=== PATIENT | male | born 1945 | race Caucasian/White ===

== ENCOUNTER 2024-10-31 10:54 | Outpatient (CLI) | payer MEDICARE, OTHER | END 2024-10-31 23:59 | disposition home or self-care (01) | LOC: RAD 10:54 | PROVIDERS: ATTEND Podiatrist Foot & Ankle Surgery | DX: S90.851A Superficial foreign body, right foot, initial encounter (principal); M13.871 Other specified arthritis, right ankle and foot; M25.871 Other specified joint disorders, right ankle and foot; M79.671 Pain in right foot; X58.XXXA Exposure to other specified factors, initial encounter; Y93.89 Activity, other specified; Y92.89 Other specified places as the place of occurrence of the external cause; Y99.8 Other external cause status | CPT/HCPCS: 73700 ==

== ENCOUNTER 2025-02-08 05:20 | Day surgery (SDC) | payer MEDICARE, OTHER ==
[2025-02-01 10:43] LABS: BILIRUBIN,URINE NEGATIVE (Neg); CLARITY,URINE CLEAR (Clear); GLUCOSE, URINE >=1000 mg/dl (Neg); KETONES,URINE TRACE mg/dl (Neg); LEUKOCYTE ESTERASE ,URINE NEGATIVE (Neg); NITRITES, URINE NEGATIVE (Neg); OCCULT BLOOD,URINE NEGATIVE (Neg); PH,URINE 5.5 (4.8-8.0); PROTEIN,URINE NEGATIVE (Neg); UROBILINOGEN,URINE 0.2 E.U/dL (0.2-1.0)
[2025-02-01 10:44] LABS: BASOPHILS # (AUTO) 0.1 X10'3 (0-0.2); BASOPHILS % (AUTO) 1.1 % (0-1); EOSINOPHILS # (AUTO) 0.2 X10'3 (0-0.9); EOSINOPHILS % (AUTO) 2.1 % (0-6); LYMPHOCYTES # (AUTO) 1.5 X10'3 (1.1-4.8); LYMPHOCYTES % (AUTO) 14.4 % (21-51); MEAN CORPUSCULAR HEMOGLOBIN 31.6 PG (27.0-31.0); MEAN CORPUSCULAR HGB CONC 33.6 g/dL (33.0-36.5); MEAN CORPUSCULAR VOLUME 94.1 FL (78-98); MEAN PLATELET VOLUME 8.3 FL (7.4-10.4); MONOCYTES # (AUTO) 0.4 X10'3 (0-0.9); NEUTROPHILS # (AUTO) 8.1 X10'3 (1.8-7.7); NEUTROPHILS % (AUTO) 78.4 % (42-75); PRE OP HEMATOCRIT 45.2 % (42.0-52.0); PRE OP HEMOGLOBIN 15.2 g/dL (14.0-17.9); PRE OP PLATELET COUNT 211 X10'3 (140-440); PRE OP WHITE BLOOD COUNT 10.3 10'3 (4.8-10.8); RED CELL DISTRIBUTION WIDTH 25.1 % (11.5-14.5)
[2025-02-01 10:47] LABS: COLOR,URINE DARK YELLOW (Yellow); UA COLLECTION TYPE NON-SPECIFIED
[2025-02-01 10:50] LABS: WBC,URINE 0-4 /HPF (0-4)
[2025-02-01 10:51] LABS: BACTERIA,URINE NONE SEEN /HPF (Neg); MUCUS STRANDS FEW /LPF (Neg); RBC,URINE 0-2 /HPF (0-2); SQUAMOUS EPITHELIAL CELL,UR FEW /LPF (FEW)
[2025-02-01 11:00] LABS: ANISOCYTOSIS 3+; PLATELET ESTIMATE NORMAL
[2025-02-01 11:09] LABS: ALBUMIN 3.8 G/DL (3.4-5.0); ALBUMIN/GLOBULIN RATIO 1.3 (1.1-1.5); ALKALINE PHOSPHATASE 59 IU/L (46-116); BLOOD UREA NITROGEN 26 MG/DL (7-18); BUN/CREATININE RATIO 29.9 (10.0-20.0); CALCIUM 8.6 MG/DL (8.5-10.1); CHLORIDE 106 MMOL/L (99-107); CREATININE 0.87 MG/DL (0.60-1.10); PRE OP ALT 20 U/L (30-65); PRE OP ANION GAP 8 (8-16); PRE OP AST 16 U/L (10-37); PRE OP BILIRUB, TOTAL 1.5 MG/DL (0.0-1.0); PRE OP GLUCOSE 168 MG/DL (70-104); PRE OP POTASSIUM 4.4 MMOL/L (3.4-5.1); PRE OP SODIUM 139 MMOL/L (135-145); TOTAL CARBON DIOXIDE 25.5 MMOL/L (24-32); TOTAL PROTEIN 6.8 G/DL (6.4-8.2); eGFR 84 ML/MIN
[~2025-02-08] VITALS: Ht 193 cm; Wt 101.6 kg
[~2025-02-08 05:20] MED LIST: CALCIUM; EMPA25TA PO; INSU100V41 SQ; MULTIVITAMIN; NIACIN; OMEG-166 PO; PRAV20TA4 PO; SEMA1PEN3 SUBCUT; VIT B12; VIT C; VIT D3; WARF-55 PO; ZINC; [UNRECOGNIZED DRUG - OTHER]
[2025-02-08] MEDS ORDERED: ceFAZolin 2gm in dextrose, iso 50 ML IV ONE (05:30)
[2025-02-08 05:40] VITALS: BP 139/81; PULSE 48; RESP 16; TEMP 96.6; O2SAT 98
[2025-02-08] MEDS: famotidine 20mg tablet PO ONE (06:36)
[2025-02-08] MEDS: ringers solution, lacted 1,000 ML IV SCH (06:38)
[2025-02-08] MEDS ORDERED: bacitracin 15gm ointment TP ONE (07:10)
[2025-02-08] MEDS ORDERED: BUPIVAcaine 2.5mg/ml inj 50ml vial (contains preservative) ONE (07:10)
[2025-02-08] MEDS ORDERED: midazolam 1 mg/ML 2ml injection ONE (07:17)
[2025-02-08] MEDS ORDERED: fentaNYL/PF 50MCG/1 ML 2ML syringe ONE (07:17)
[2025-02-08] MEDS ORDERED: propofol inj 20 ML IV ONE (07:18)
[2025-02-08] MEDS ORDERED: LIDOcaine 2% (20mg/ml) 5ml vial ONE (07:18)
[2025-02-08] MEDS ORDERED: sevoflurane 250ml liquid IH ONE (07:20)
[2025-02-08] MEDS ORDERED: dexamethasone sod phosphate 4mg/ml inj. ONE (07:35)
[2025-02-08] MEDS ORDERED: acetaminophen 1,000mg/100ml IV 100 ML IV ONE (08:13)
[2025-02-08] MEDS ORDERED: ondansetron/PF 4mg/2ml inj ONE (08:14)
[2025-02-08] MEDS ORDERED: proCHLORperazine 10 MG/2 ml inj IV PRN (08:15)
[2025-02-08] MEDS ORDERED: ringers solution, lacted 1,000 ML IV SCH (08:15)
[2025-02-08] MEDS ORDERED: labetalol 20mg/4ml (5mg/ml) syringe IV PRN (08:15)
[2025-02-08] MEDS ORDERED: meperidine/PF 25mg/ml syringe IV PRN ×3 (08:15)
[2025-02-08] MEDS ORDERED: morphine 4 MG/ML inj SYRINge IV PRN (08:15)
[2025-02-08] MEDS ORDERED: enalaprilat 1.25mg/ml 2ml vial IV PRN (08:15)
[2025-02-08] MEDS ORDERED: morphine 2 MG/ML inj. syringe IV PRN (08:15)
[2025-02-08] MEDS ORDERED: ondansetron/PF 4mg/2ml inj IV PRN (08:15)
[2025-02-08 08:26] VITALS: BP 115/69; PULSE 64; RESP 13; O2SAT 96
[2025-02-08 08:30] VITALS: BP 117/70; PULSE 72; RESP 14; O2SAT 96
[2025-02-08 08:40] VITALS: BP 116/64; PULSE 70; RESP 15; O2SAT 97
[2025-02-08 09:00] VITALS: BP 131/70; PULSE 71; RESP 13; O2SAT 94
[2025-02-08 09:10] VITALS: BP 141/78; PULSE 73; RESP 13; O2SAT 94
== END 2025-02-08 09:16 | disposition home or self-care (01) ==
LOC: PAS 05:20
PROVIDERS: ATTEND Podiatrist Foot & Ankle Surgery
DX: S90.851A Superficial foreign body, right foot, initial encounter (principal); E78.5 Hyperlipidemia, unspecified; W45.8XXA Other foreign body or object entering through skin, initial encounter; Y93.89 Activity, other specified; Y92.89 Other specified places as the place of occurrence of the external cause; Y99.8 Other external cause status; Z79.899 Other long term (current) drug therapy; Z98.890 Other specified postprocedural states
CPT/HCPCS: 28190; 36415; 73620; 80053; 81001; 82948; 85025; 93005; A4618; A6222; A6402; A6449; A7000; J0131; J0690; J1100; J2003; J2250; J2405; J2704; J3010; J3490; J7030; J7120; Z7506; Z7508; Z7512; Z7610; 76000; 85008